=== PATIENT | male | born 1980 | race Caucasian/White ===

== ENCOUNTER 2023-07-15 07:34 | Outpatient (CLI) | payer OTHER, SELFPAY ==
--- NOTE | 2023-07-15 08:44 | W.ANESCHARGE ---
Anesthesia Charges Start Date/Time Anesthesia Start Date: 07/15/23 Anesthesia Start Time: 08:02 Stop Date/Time Anesthesia Stop Date: 07/15/23 Anesthesia Stop Time: 08:40
--- NOTE | 2023-07-15 12:14 | W.ANESCHARGE ---
Anesthesia Charges Start Date/Time Anesthesia Start Date: 07/15/23 Anesthesia Start Time: 08:02 Stop Date/Time Anesthesia Stop Date: 07/15/23 Anesthesia Stop Time: 08:40
== END 2023-07-15 07:35 | disposition home or self-care (01) ==
PROVIDERS: PCP Physician Assistant Medical; Visit Provider Surgery
DX: Z12.11 Encounter for screening for malignant neoplasm of colon (principal); K63.5 Polyp of colon; Z80.0 Family history of malignant neoplasm of digestive organs; Z86.010 Personal history of colon polyps
CPT/HCPCS: 00811; 45380; 45385; 88305; J2704